=== PATIENT | male | born 1955 ===

== ENCOUNTER 2019-06-29 12:42 | Emergency (ER) | payer OTHER ==
--- NOTE | 2019-06-29 13:49 | EDM.PDOC ---
ED HPI GENERAL MEDICAL PROBLEM - General Chief Complaint: Fever Stated Complaint: FEVER Time Seen by Provider: 06/29/19 13:42 - History of Present Illness INITIAL COMMENTS - FREE TEXT/NARRATIVE: 63-year-old male presents the emergency room with fevers chills worsening cough. Patient developed fevers yesterday afternoon and into the evening. He has a cough that is been get progressively getting worse over the last 2 weeks. Cough is productive he is bringing up mostly clear to slightly off colored sputum. At this time the patient is achy all over. He has had some sinus congestion but this is a chronic issue patient has some underlying lung disease however he said no history of heart problems or heart failure. Bilateral Shoulder Pain Score (Numeric/FACES): 3 - Related Data Allergies Allergy/AdvReac Type Severity Reaction Status Date / Time seasonal allergies Allergy Shortness Uncoded 12/31/13 09:27 of Breath Home Meds: Home Meds Albuterol [Proair HFA] 2 puff PO QID 12/30/13 [History] Fexofenadine [Skyla] 180 mg PO DAILY PRN 12/30/13 [History] Levothyroxine [Synthroid] 150 mcg PO DAILY 12/30/13 [History] Rosuvastatin [Crestor] 5 mg PO DAILY 12/30/13 [History] Doxycycline [Vibramycin] 100 mg PO Q12H #14 tab 06/29/19 [Rx] Oseltamivir [Tamiflu] 75 mg PO BID #9 cap 06/29/19 [Rx] Past Medical History HEENT History: Reports: Other (See Below) Other HEENT History: has fluid running down both ears-causes tickling inside the ear and bothers him Respiratory History: Reports: COPD Psychiatric History: Reports: Depression Endocrine/Metabolic History: Reports: Hypoparathyroidism - Past Surgical History GI Surgical History: Reports: Hernia, Inguinal Social & Family History - Tobacco Use Smoking Status *Q: Current Every Day Smoker Years of Tobacco use: 30 Packs/Tins Daily: 1 Used Tobacco, but Quit: Yes Month/Year Tobacco Last Used: 5 - Caffeine Use Caffeine Use: Reports: Coffee - Recreational Drug Use Recreational Drug Use: No ED ROS GENERAL - Review of Systems Review Of Systems: See Below Constitutional: Reports: Fever, Chills HEENT: Reports: Rhinitis Respiratory: Reports: Shortness of Breath (His shortness of breath is more of a chronic condition related to his COPD), Cough, Sputum Cardiovascular: Reports: No Symptoms. Denies: Chest Pain, Edema Endocrine: Reports: No Symptoms GI/Abdominal: Reports: No Symptoms : Reports: No Symptoms Musculoskeletal: Reports: No Symptoms Skin: Reports: No Symptoms Neurological: Reports: No Symptoms ED EXAM, GENERAL - Physical Exam Exam: See Below Exam Limited By: No Limitations General Appearance: Alert, No Apparent Distress Eye Exam: Bilateral Eye: Normal Inspection Ears: Normal External Exam, Normal Canal, Hearing Grossly Normal, Normal TMs Ear Exam: Bilateral Ear: Other (He has some mild cerumen accumulation in his ears tympanic membrane is normal contour and color) Throat/Mouth: Normal Inspection, Normal Lips, Normal Teeth, Normal Gums, Normal Oropharynx, Normal Voice, No Airway Compromise Head: Atraumatic, Normocephalic Neck: Normal Inspection, Supple, Non-Tender, Full Range of Motion. No: Lymphadenopathy (L), Lymphadenopathy (R) Respiratory/Chest: No Respiratory Distress, Lungs Clear, Normal Breath Sounds, Decreased Breath Sounds Cardiovascular: Regular Rate, Rhythm, No Edema, No Murmur GI/Abdominal: Normal Bowel Sounds, Soft, Non-Tender ((Official chart) Back Exam: Normal Inspection, CVA Tenderness (L), CVA Tenderness (R) Extremities: Normal Inspection, Non-Tender, No Pedal Edema Course - Vital Signs Last Recorded V/S: Last Vital Signs Temp 39.5 C H 06/29/19 13:11 Pulse 126 H 06/29/19 13:11 Resp 20 06/29/19 13:11 BP 137/89 06/29/19 13:11 Pulse Ox 91 L 06/29/19 13:11 - Orders/Labs/Meds Orders: Active Orders 24 hr Category Date Time Status CULTURE BLOOD [BC] Stat Lab 06/29/19 13:55 Received CULTURE BLOOD [BC] Stat Lab 06/29/19 14:00 Received CULTURE URINE [RM] Stat Lab 06/29/19 14:20 Received Blood Culture x2 Reflex Set [OM.PC] Stat Oth 06/29/19 13:43 Ordered Blood Culture x2 Reflex Set [OM.PC] Stat Oth 06/29/19 13:45 Ordered Labs: Laboratory Tests 06/29/19 06/29/19 06/29/19 Range/Units 13:55 13:55 13:55 WBC 5.61 (4.23-9.07) K/mm3 RBC 5.27 (4.63-6.08) M/mm3 Hgb 16.1 (13.7-17.5) gm/dl Hct 49.1 (40.1-51.0) % MCV 93.2 H D (79.0-92.2) fl MCH 30.6 (25.7-32.2) pg MCHC 32.8 (32.2-35.5) g/dl RDW Std Deviation 47.7 H (35.1-43.9) fL Plt Count 220 (163-337) K/mm3 MPV 9.2 L (9.4-12.3) fl Neut % (Auto) 77.1 H (34.0-67.9) % Lymph % (Auto) 6.2 L (21.8-53.1) % [place] % (Auto) 15.9 H (5.3-12.2) % Eos % (Auto) 0.4 L (0.8-7.0) Baso % (Auto) 0.2 (0.1-1.2) % Neut # (Auto) 4.33 (1.78-5.38) K/mm3 Lymph # (Auto) 0.35 L (1.32-3.57) K/mm3 [place] # (Auto) 0.89 H (0.30-0.82) K/mm3 Eos # (Auto) 0.02 L (0.04-0.54) K/mm3 Baso # (Auto) 0.01 (0.01-0.08) K/mm3 Manual Slide Review Normal smear PT (9.7-12.0) SECONDS INR Sodium 137 (136-145) mEq/L Potassium 4.5 (3.5-5.1) mEq/L Chloride 101 (98-107) mEq/L Carbon Dioxide 25 (21-32) mEq/L Anion Gap 15.5 H (5-15) BUN 18 (7-18) mg/dL Creatinine 1.5 H (0.7-1.3) mg/dL Est Cr Clr Drug Dosing 56.23 mL/min Estimated GFR (MDRD) 47 (>60) mL/min BUN/Creatinine Ratio 12.0 L (14-18) Glucose 87 (80-115) mg/dL Lactic Acid 1.2 (0.4-2.0) mmol/L Calcium 9.3 (8.5-10.1) mg/dL Total Bilirubin 0.7 (0.2-1.0) mg/dL AST 28 (15-37) U/L ALT 54 (16-63) U/L Alkaline Phosphatase 80 (46-116) U/L Total Protein 7.6 (6.4-8.2) g/dl Albumin 3.9 (3.4-5.0) g/dl Globulin 3.7 gm/dL Albumin/Globulin Ratio 1.1 (1-2) Urine Color (Yellow) Urine Appearance (Clear) Urine pH (5.0-8.0) Ur Specific [place] (1.005-1.030) Urine Protein (Negative) Urine Glucose (UA) (Negative) Urine Ketones (Negative) Urine Occult Blood (Negative) Urine Nitrite (Negative) Urine Bilirubin (Negative) Urine Urobilinogen (0.2-1.0) Ur Leukocyte Esterase (Negative) Urine RBC (0-5) /hpf Urine WBC (0-5) /hpf Ur Squamous Epith Cells (0-5) /hpf Urine Bacteria (FEW) /hpf Urine Mucus (FEW) /hpf 06/29/19 06/29/19 Range/Units 14:00 14:20 WBC (4.23-9.07) K/mm3 RBC (4.63-6.08) M/mm3 Hgb (13.7-17.5) gm/dl Hct (40.1-51.0) % MCV (79.0-92.2) fl MCH (25.7-32.2) pg MCHC (32.2-35.5) g/dl RDW Std Deviation (35.1-43.9) fL Plt Count (163-337) K/mm3 MPV (9.4-12.3) fl Neut % (Auto) (34.0-67.9) % Lymph % (Auto) (21.8-53.1) % [place] % (Auto) (5.3-12.2) % Eos % (Auto) (0.8-7.0) Baso % (Auto) (0.1-1.2) % Neut # (Auto) (1.78-5.38) K/mm3 Lymph # (Auto) (1.32-3.57) K/mm3 [place] # (Auto) (0.30-0.82) K/mm3 Eos # (Auto) (0.04-0.54) K/mm3 Baso # (Auto) (0.01-0.08) K/mm3 Manual Slide Review PT 11.2 (9.7-12.0) SECONDS INR 1.03 Sodium (136-145) mEq/L Potassium (3.5-5.1) mEq/L Chloride (98-107) mEq/L Carbon Dioxide (21-32) mEq/L Anion Gap (5-15) BUN (7-18) mg/dL Creatinine (0.7-1.3) mg/dL Est Cr Clr Drug Dosing mL/min Estimated GFR (MDRD) (>60) mL/min BUN/Creatinine Ratio (14-18) Glucose (80-115) mg/dL Lactic Acid (0.4-2.0) mmol/L Calcium (8.5-10.1) mg/dL Total Bilirubin (0.2-1.0) mg/dL AST (15-37) U/L ALT (16-63) U/L Alkaline Phosphatase (46-116) U/L Total Protein (6.4-8.2) g/dl Albumin (3.4-5.0) g/dl Globulin gm/dL Albumin/Globulin Ratio (1-2) Urine Color Yellow (Yellow) Urine Appearance Clear (Clear) Urine pH 7.0 (5.0-8.0) Ur Specific [place] 1.025 (1.005-1.030) Urine Protein Negative (Negative) Urine Glucose (UA) Negative (Negative) Urine Ketones Negative (Negative) Urine Occult Blood Negative (Negative) Urine Nitrite Negative (Negative) Urine Bilirubin Negative (Negative) Urine Urobilinogen 1.0 (0.2-1.0) Ur Leukocyte Esterase Trace H (Negative) Urine RBC 0-5 (0-5) /hpf Urine WBC 0-5 (0-5) /hpf Ur Squamous Epith Cells 0-5 (0-5) /hpf Urine Bacteria Rare (FEW) /hpf Urine Mucus Rare (FEW) /hpf Meds: Medications Discontinued Medications Generic Name Dose Route Start Last Admin Trade Name Freq PRN Reason Stop Dose Admin Acetaminophen 650 mg 06/29/19 14:16 06/29/19 14:25 Tylenol PO 06/29/19 14:17 650 mg NOW ONE Administration Doxycycline Hyclate 100 mg 06/29/19 16:51 Vibramycin PO 06/29/19 16:52 ONETIME ONE Lactated Ringer's 1,000 mls @ 999 mls/hr 06/29/19 14:17 06/29/19 14:26 Ringers, Lactated IV 06/29/19 15:17 999 mls/hr .BOLUS ONE Administration Oseltamivir Phosphate 75 mg 06/29/19 16:49 Tamiflu PO 06/29/19 16:50 ONETIME ONE - Re-Assessments/Exams Free Text/Narrative Re-Assessment/Exam: 06/29/19 16:52 Evaluation is for the most part unremarkable influenza screen is negative however we are early into this. Chest x-ray is unremarkable for pneumonia. Prior to developing a fever last night he had what sounds like a wet bronchitis that was getting worse at this point I am to go ahead and start him on doxycycline 100 mg twice a day for 7 days. He has albuterol at home but does not use it on a regular basis will have him use 2 puffs every 6 hours. And with the possibility of an negative influenza screen and his history of COPD will go ahead and start Tamiflu. Departure - Departure Time of Disposition: 16:53 Disposition: Home, Self-Care 01 Clinical Impression: Viral respiratory illness, Bronchitis - Discharge Information Prescriptions: Doxycycline [Vibramycin] 100 mg PO Q12H #14 tab Oseltamivir [Tamiflu] 75 mg PO BID #9 cap Referrals: Griselda Ngo PA-C [Primary Care Provider] - Forms: ED Department Discharge Additional Instructions: Return to the emergency room with any questions problems or worsening symptoms. Use your albuterol inhaler 2 puffs every 4-6 hours as tolerated. You have been started on doxycycline this is an antibiotic take it once twice a day until all gone. You have also been started on Tamiflu this is an antiviral, or anti-flu medication take 1 twice daily until gone. Follow-up in the [facility] as needed. Sepsis Event Note - Evaluation Sepsis Screening Result: Sepsis Risk - Focused Exam Vital Signs: Vital Signs Temp Pulse Resp BP Pulse Ox 06/29/19 13:11 39.5 C H 126 H 20 137/89 91 L Date Exam was Performed: 06/29/19 Time Exam was Performed: 16:52 - My Orders Last 24 Hours: My Active Orders 06/29/19 13:43 Blood Culture x2 Reflex Set [OM.PC] Stat 06/29/19 13:45 Blood Culture x2 Reflex Set [OM.PC] Stat 06/29/19 13:55 CULTURE BLOOD [BC] Stat 06/29/19 14:00 CULTURE BLOOD [BC] Stat 06/29/19 14:20 CULTURE URINE [RM] Stat - Assessment/Plan Last 24 Hours: My Active Orders 06/29/19 13:43 Blood Culture x2 Reflex Set [OM.PC] Stat 06/29/19 13:45 Blood Culture x2 Reflex Set [OM.PC] Stat 06/29/19 13:55 CULTURE BLOOD [BC] Stat 06/29/19 14:00 CULTURE BLOOD [BC] Stat 06/29/19 14:20 CULTURE URINE [RM] Stat
[2019-06-29] MEDS ORDERED: Acetaminophen 325 MG Tab PO ONE (14:16)
[2019-06-29] MEDS ORDERED: Lactated Ringers 1,000 ML IV ONE (14:17)
--- NOTE | 2019-06-29 14:48 | CR ---
Chest: 2 views of the chest were obtained. Comparison: No prior chest imaging is available. Small hiatal hernia is noted. Heart size is normal. Tortuous thoracic aorta is seen. Slight atelectasis or scarring is seen within the left base. Lungs otherwise are clear with no definite acute parenchymal change being seen. Bony structure shows mild scattered disc space narrowing within the spine with minimal scattered endplate osteophytes. Impression: 1. Findings as noted above. 2. Nothing acute is suspected. Diagnostic code #2 This report was dictated in [place] Standard Time
[2019-06-29] MEDS ORDERED: Oseltamivir 75 MG Cap PO ONE (16:49)
[2019-06-29] MEDS ORDERED: Doxycycline 100 MG Cap PO ONE (16:51)
== END 2019-06-29 17:10 | disposition home or self-care (01) ==
LOC: JD.ED 12:42
DX: J40 Bronchitis, not specified as acute or chronic (principal); B34.9 Viral infection, unspecified; J44.9 Chronic obstructive pulmonary disease, unspecified; F17.210 Nicotine dependence, cigarettes, uncomplicated; Z79.899 Other long term (current) drug therapy
CPT/HCPCS: 36415; 71046; 80053; 81001; 83605; 85025; 85610; 87040; 87086; 87804; 96360; 99283; A9270; J7120

== ENCOUNTER 2021-02-22 14:56 | Emergency (ER) | payer MEDICARE, OTHER ==
[2021-02-22] MEDS ORDERED: Sulfamethoxazole/Trimethoprim 800-160 MG Tab PO ONE (16:05)
--- NOTE | 2021-02-22 16:11 | EDM.PDOC ---
ED HPI GENERAL MEDICAL PROBLEM - General Chief Complaint: Skin Complaint Stated Complaint: POSS INFECTION BEHIND R EAR Time Seen by Provider: 02/22/21 15:39 Source of Information: Reports: Patient, RN Notes Reviewed History Limitations: Reports: No Limitations - History of Present Illness INITIAL COMMENTS - FREE TEXT/NARRATIVE: Patient is a 65-year-old male who presents to the ER for a skin lump behind his right ear. Patient states that this has been present for a few days, notes that it is getting more tender, and seem to be red when his looked at it. He has not noticed any drainage coming from the lump. He states that he is having some lumps that he is concerned about seem to have sprouted after this initial lump was noticed. He notes this is further down into the neck. He has not had any fevers or chills, cough or shortness of breath or any sort of nausea/vomiting/diarrhea. He was set to see a provider in [facility] tomorrow, but he states that the pain was so much that he wanted to have this looked at today. He has not taken any sort of Tylenol ibuprofen for this. States that it is very bothersome, when he tries to wear his hat, because it does rub on it and makes it hurt. 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 OPERATOR: none Right Head Pain Score (Numeric/FACES): 2 - Related Data Allergies Allergy/AdvReac Type Severity Reaction Status Date / Time seasonal allergies Allergy Severe Shortness Uncoded 02/22/21 15:45 of Breath Home Meds: Home Meds Albuterol [Proair HFA] 2 puff PO QID 12/30/13 [History] Levothyroxine [Synthroid] 150 mcg PO DAILY 12/30/13 [History] Rosuvastatin [Crestor] 5 mg PO DAILY 12/30/13 [History] Sulfamethoxazole/Trimethoprim [Bactrim Ds Tablet] 1 tab PO BID 7 Days #14 tablet 02/22/21 [Rx] Past Medical History HEENT History: Reports: Other (See Below) Other HEENT History: has fluid running down both ears-causes tickling inside the ear and bothers him Respiratory History: Reports: COPD, Other (See Below) Other Respiratory History: seaonal allergies Psychiatric History: Reports: Depression Endocrine/Metabolic History: Reports: Hypothyroidism - Infectious Disease History Infectious Disease History: Reports: Chicken Pox - Past Surgical History GI Surgical History: Reports: Hernia, Inguinal Social & Family History - Tobacco Use Tobacco Use Status *Q: Former Tobacco User Used Tobacco, but Quit: Yes Month/Year Tobacco Last Used: 15 yr ago- chewing quit 7 yrs - Caffeine Use Caffeine Use: Reports: Coffee, Soda - Recreational Drug Use Recreational Drug Use: No ED ROS GENERAL - Review of Systems Review Of Systems: Comprehensive ROS is negative, except as noted in HPI. ED EXAM, SKIN/RASH Exam: See Below Exam Limited By: No Limitations General Appearance: Alert, WD/WN, No Apparent Distress Eye Exam: Bilateral Eye: EOMI, Normal Inspection, PERRL Ears: Normal External Exam Neck: Lymphadenopathy (R) (1-2 shoddy nodes appreciated distal to skin lesion in question) Respiratory/Chest: No Respiratory Distress, Lungs Clear, Normal Breath Sounds, No Accessory Muscle Use, Chest Non-Tender Cardiovascular: Normal Peripheral Pulses, Regular Rate, Rhythm, No Edema Extremities: Normal Inspection, Normal Capillary Refill Neurological: Alert, Oriented, Normal Cognition, No Motor/Sensory Deficits Psychiatric: Normal Affect, Normal Mood Skin: Warm, Dry, Intact, No Rash, Erythema (lum behind R ear, near the top-is tender and mobile, not fluctuant at this time, does not have definite center for I & D at this time.) Course - Vital Signs Last Recorded V/S: Last Vital Signs Temp 98.6 F 02/22/21 15:52 Pulse 84 02/22/21 15:52 Resp 20 02/22/21 15:52 BP 120/94 H 02/22/21 15:52 Pulse Ox 95 02/22/21 15:52 - Orders/Labs/Meds Orders: Active Orders 24 hr Category Date Time Status Sulfamethoxazole/Trimethoprim [Septra DS] Med 02/22/21 16:05 Once 1 tab PO ONETIME ONE Medication Orders Trimethoprim/Sulfamethoxazole (Sulfamethoxazole/Trimethoprim 800-160 Mg Tab) 1 tab PO ONETIME ONE Stop: 02/22/21 16:06 Meds: Medications Generic Name Dose Route Start Last Admin Trade Name Freq PRN Reason Stop Dose Admin Trimethoprim/Sulfamethoxazole 1 tab 02/22/21 16:05 Sulfamethoxazole/Trimethoprim 800-160 Mg Tab PO 02/22/21 16:06 ONETIME ONE - Re-Assessments/Exams Free Text/Narrative Re-Assessment/Exam: 02/22/21 16:10 Patient presents to the ER for evaluation of the skin lump behind his right ear. This does appear to be a possible abscess behind his right superior ear. We will get him on Bactrim at this time and have him follow-up with a provider by the end of the week if things do not seem to getting much better. First dose of Bactrim will be given in the ER today. Departure - Departure Time of Disposition: 16:11 Disposition: Home, Self-Care 01 Condition: Good Clinical Impression: Cellulitis and abscess of head - Discharge Information *PRESCRIPTION DRUG MONITORING PROGRAM REVIEWED*: No *COPY OF PRESCRIPTION DRUG MONITORING REPORT IN PATIENT ABELINO: No Instructions: Skin Abscess, [id number] Referrals: Griselda Ngo PA-C [Primary Care Provider] - Additional Instructions: You were evaluated in the ER today regarding a suspected skin infection. It does appear that you have a cellulitis/abscess behind your right ear. There some some suspected lymph nodes near this area as well- sometimes when we have infections the lymph nodes get swollen or enlarged because they are trying to clear the infection. You were given an antibiotic, Bactrim DS (trimethoprim/sulfamethoxazole) please take as prescribed until the course is done or told otherwise by different provider. Please note that this antibiotic will take at least 48 hours to start working appropriately. This medication was electronically prescribed to the [facility] located in [facility], you will need to go there tomorrow during normal business hours to retrieve this medication and take as directed. You may try to use heat/ice packs to the area to help reduce pain/swelling. You may take 500 mg Tylenol or 600 mg ibuprofen every 6 hours as needed for further pain relief. Do not exceed 4000 mg Tylenol or 3200 mg ibuprofen in a 24-hour time span. Strongly recommend that you follow-up with your care provider, sometime by the end of this week to make sure that the area of concern is getting better as expected. Please return to the ER at any time if your symptoms change or worsen. Sepsis Event Note (ED) - Focused Exam Vital Signs: Vital Signs Temp Pulse Resp BP Pulse Ox 02/22/21 15:52 98.6 F 84 20 120/94 H 95 - My Orders Last 24 Hours: My Active Orders 02/22/21 16:05 Sulfamethoxazole/Trimethoprim [Septra DS] 1 tab PO ONETIME ONE - Assessment/Plan Last 24 Hours: My Active Orders 02/22/21 16:05 Sulfamethoxazole/Trimethoprim [Septra DS] 1 tab PO ONETIME ONE
== END 2021-02-22 16:30 | disposition home or self-care (01) ==
LOC: JD.ED 14:56
DX: H60.11 Cellulitis of right external ear (principal); H60.01 Abscess of right external ear; J44.9 Chronic obstructive pulmonary disease, unspecified; E03.9 Hypothyroidism, unspecified; Z87.891 Personal history of nicotine dependence; Z79.899 Other long term (current) drug therapy
CPT/HCPCS: 99282; A9270